=== PATIENT | female | born 1990 | race Caucasian/White ===

== ENCOUNTER 2022-03-28 18:33 | Emergency (ER) | payer SELFPAY ==
[~2022-03-28] VITALS: Ht 167.6 cm; Wt 105.0 kg
[2022-03-28 18:39] VITALS: BP 116/68
== END 2022-03-28 20:42 | disposition left against medical advice (07) ==
LOC: ER 18:33
DX: Z53.21 Procedure and treatment not carried out due to patient leaving prior to being seen by health care provider (principal)